=== PATIENT | female | born 1965 | race African-American/Black ===

== ENCOUNTER 2025-04-17 08:18 | Outpatient (AMB) | payer OTHER, SELFPAY ==
--- NOTE | 2025-04-17 08:17 | MHC.PC.OV ---
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 PENDING SALE TO [facility] Medical History (Updated 04/17/25 @ 08:53 by Raysa Betancourt MD) Hx of screening mammography Annual physical exam Normal pelvic exam CKD (chronic kidney disease) stage 3, GFR 30-59 ml/min Surgical History (Updated 04/17/25 @ 08:36 by Raysa Betancourt MD) Hx of colonoscopy Hx of section Family History (Updated 04/17/25 @ 08:23 by Sanjana Vega [facility], [facility]) Father No problems noted. Mother No problems noted. Social History (Updated 04/17/25 @ 08:56 by Raysa Betancourt MD) Household Members Other:: , 5 children (41 -16), works from home preauthorizations Housing: House Patient Tobacco Use Status: Never used Tobacco e-Cigarette/Vaping Use: Never Used service: No Current occupational status: employed Cognitive needs: No Hearing needs: No Vision needs: Yes Questionnaire PHQ-9 Over the last 2 weeks, how often have you been bothered by any of the following problems? 1. Little interest or pleasure in doing things: not at all 2. Feeling down, depressed, or hopeless: not at all 3. Trouble falling or staying asleep, or sleeping too much: not at all 4. Feeling tired or having little energy: not at all 5. Poor appetite or overeating: not at all 6. Feeling bad about yourself - or that you are a failure or have let yourself or your family down: not at all 7. Trouble concentrating on things, such as reading the newspaper or watching television: not at all 8. Moving or speaking so slowly that other people could have noticed. Or the opposite - being so fidgety or restless that you have been moving around a lot more than usual: not at all 9. Thoughts that you would be better off or of hurting yourself in some way: not at all Total score: 0 Depression Screening Interpretation: Negative Depression Screening Done: Yes 48013 - PHQ-9 Billing: Yes Source: Developed by Drs. Stephon Santana, Lynn Mcmanus, Thiago Batista and colleagues, with an educational gaye from [employer]. Thrive Questionnaire Date Thrive assessed: 04/17/25 I am a: Parent/Caregiver What is your living situation today?: I have a steady place to live Within the past 12 months, did the food you bought not last and you didn't have the money to get more?: Never true Within the past 12 months, did you worry whether your food would run out before you got money to buy more?: Never true Do you have trouble paying for medicines?: No Do you have trouble getting transportation to medical appointments?: No Do you have trouble paying your heating and electricity bill?: No Do you have trouble taking care of your child, family member or friend?: No Do you have trouble with day-to-day activities such as bathing, preparing meals, shopping, managing finances, etc.?: No Are you currently unemployed and looking for a job?: Yes Are you interested in more education?: No Please select the resources that you would like help with: None Currently or been in a relationship where the following occur: No concerns reported THRIVE Score: 0 AUDIT C Alcohol Use Questionnaire (AUDIT-C) 1. How often do you have a drink containing alcohol?: Never 3. How often do you have six or more drinks on one occasion?: Never Total Score: 0 YESSICA-7 AMB Questionnaire YESSICA-7 Date YESSICA - 7 assessed: 04/17/25 Feeling nervous, anxious, or on edge: 0 = Not at all Not being able to stop or control worryin = Not at all Worrying too much about different things: 0 = Not at all Trouble relaxin = Not at all Being so restless that it is hard to sit still: 0 = Not at all Becoming easily annoyed or irritable: 0 = Not at all Feeling afraid as if something awful might happen: 0 = Not at all Total YESSICA-7 score (0-4 normal; 5-9 mild; 10-14 moderate; 15-21 severe): 0 Source: Developed by Drs. Stephon Santana, Lynn Mcmanus, Thiago Batista and colleagues, with an educational gaye from [employer]. YESSICA-7 Assessment Billing YESSICA-7 Assessment Tool: YESSICA-7 Assessment 52355 Review of Systems Const All systems reviewed & are unremarkable except as noted in HPI and below Eyes Reports no additional complaints ENT Reports no additional complaints Card Reports no additional complaints Resp Reports no additional complaints GI Reports no additional complaints Reports no additional complaints Musc Reports no additional complaints Physical exam (Primary Care) Vital Signs: Last Vital Signs Temp 98.3 F 04/17/25 08:18 Pulse 81 04/17/25 08:18 Resp 17 04/17/25 08:18 BP 116/80 04/17/25 08:18 Pulse Ox 98 04/17/25 08:18 Oxygen Delivery Method Room Air 04/17/25 08:18 BMI result Body Mass Index 20.6 Tobacco/Smoking Status: Tobacco use Status Tobacco use date assessed 04/17/25 04/17/25 08:24 Patient Tobacco Use Status Never used Tobacco 04/17/25 08:24 e-Cigarette/Vaping Use Never Used 04/17/25 08:24 PHQ-9: PHQ-9 Score PHQ-9: Total score 0 04/17/25 08:24 Depression Screening Interpretation: Negative Thrive Assessment: Date of Thrive Assessment Date Thrive assessed 04/17/25 04/17/25 08:24 Currently or been in a relationship where the following occur: No concerns reported Const General: no acute distress HENMT Head: Yes normal to inspection Ears: hearing grossly normal bilaterally General nose exam: Normal external nose present Face and sinus: Yes normal facial exam Throat: Yes posterior oropharynx normal Eyes General: appearance normal, both eyes and all related structures Neck Neck: Yes no lymphadenopathy and Yes supple Resp Effort & Inspection: normal respiratory effort Auscultation: clear to auscultation bilaterally Cardio Rhythm: regular rhythm Heart sounds: S1 normal heart sound present and S2 normal heart sound present GI Inspection: Yes normal to inspection Palpation (GI): Soft to palpation Percussion: Yes normal to percussion Auscultation: normal bowel sounds Coding Level of Care Code New Pt Prev Care 40-64y(65913) Diagnoses CKD (chronic kidney disease) stage 3, GFR 30-59 ml/min N18.30 Hx of screening mammography Z92.89 Annual physical exam Z00.00 Additional Codes YESSICA-7 Assessment Billing - YESSICA-7 Assessment Tool: YESSICA-7 Assessment 92573 ([id number]) PHQ-9 - 24038 - PHQ-9 Billing: Yes ([id number]) Assessment & Plan Assessment & Plan (1) CKD (chronic kidney disease) stage 3, GFR 30-59 ml/min: Comment: 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 She will have a fasting blood work today. Patient will provide a copy of her colonoscopy from [facility] Orders: Orders Comprehensive [place]. Panel Fast Today E55.9 - Vitamin D deficiency, unspecified, N18.30 - Chronic kidney disease, stage 3 unspecified, Z00.00 - Encounter for general adult medical examination without abnormal findings TSH reflex Free T4 Today E55.9 - Vitamin D deficiency, unspecified, N18.30 - Chronic kidney disease, stage 3 unspecified, Z00.00 - Encounter for general adult medical examination without abnormal findings Vitamin D 25-OH Total Today E55.9 - Vitamin D deficiency, unspecified, N18.30 - Chronic kidney disease, stage 3 unspecified, Z00.00 - Encounter for general adult medical examination without abnormal findings UA w Microscopic Today E55.9 - Vitamin D deficiency, unspecified, N18.30 - Chronic kidney disease, stage 3 unspecified, Z00.00 - Encounter for general adult medical examination without abnormal findings Complete Blood Count Auto Diff Today E55.9 - Vitamin D deficiency, unspecified, N18.30 - Chronic kidney disease, stage 3 unspecified, Z00.00 - Encounter for general adult medical examination without abnormal findings Lipid Panel Today E55.9 - Vitamin D deficiency, unspecified, N18.30 - Chronic kidney disease, stage 3 unspecified, Z00.00 - Encounter for general adult medical examination without abnormal findings
[2025-04-17 08:18] VITALS: BP 116/80; PULSE 81; RESP 17; TEMP 36.8; O2SAT 98; BMI 20.6
--- OUTSIDE RECORDS SUMMARY | 2025-04-17 08:36 | XMS_ITS | Encounter Summary ---
Author Organization [facility], Address [address] [place] [address] Phone Care Team Providers Care Electronics Assembler Name Role Phone Reuben Hwang MD Primary Care Provider [phone] Encounter Details Date Type Department Care Team (Late Contact Info) Description 01/20/2023 Documentation Only [facility] [address] [place] [address] Mt Segura DO [address] [place] [address] Social History Tobacco Use Types Packs/Day Years Used Date Smoking Tobacco: Never Smokeless Tobacco: Never Alcohol Use Standard Drinks/Week Comments Not Currently 0 (1 standard drink = 0.6 oz pur e alcohol) Comments Unknown Sex and Gender Information Value Date Recorded Sex Assigned at Not on file Legal Sex Female 11:59 AM EST Gender Identity Not on file Sexual Orientation Not on file documented as of this encounter Plan of Treatment Upcoming Encounters Date Type Department Care Team (Late Contact Info) Description 05/31/2025 4:30 PM EST Office Visit [facility] [address] [place] [address] Mt Segura DO [address] [place] [address] documented as of this encounter Visit Diagnoses Not on filedocumented in this encounter Care Teams Electronics Assembler Relationship Specialty Start Date End Date Reuben Hwang MD [address] [place] [address] PCP - General Internal Medicine 08/02/19 documented as of this encounter
--- OUTSIDE RECORDS SUMMARY | 2025-04-17 08:37 | XMS_ITS | Clinical Summary ---
Author Organization [facility], Address [address] [place] [address] [place] [address] Phone Care Team Providers Care Trial Court Justice Name Role Phone Reuben Hwang MD Primary Care Provider Allergies No known active allergies Medications Dapagliflozin Propanediol (Farxiga) 10 MG tabletIndication s:Chronic kidney disease, stage 4 (severe) (HCC),Persistent proteinuria,Elev ated blood pressure reading with no diagnosis of hypertension,Hyp ophosphatemia Take 10 mg by mouth 1 (one) time each day in the morning 90 tablet 3 5 04/04/20 26 Active Farxiga 10 MG tabletIndication s:Chronic kidney disease, stage 4 (severe) (HCC),Persistent proteinuria,Elev ated blood pressure reading with no diagnosis of hypertension,Hyp ophosphatemia TAKE 1 TABLET BY MOUTH EVERY MORNING 90 tablet 3 4 04/04/20 25 Discontinu ed(Reorder (does not appear on AVS)) Active Problems Problem Noted Date Diagnosed Date Chronic kidney disease, stage 4 (severe) 022 Stage 3b chronic kidney disease 12/14/2019 Overview (07/02/2020): Update for Diagnosis Load 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/03/2019 Serum creatinine above reference range Proteinuria Overview (12/14/2019): sub-nephrotic range Elevated blood pressure read ing with no diagnosis of hypertension Cyst of kidney Overview (12/14/2019): benign Encounters Date Type Department Care Team Description 04/04/2025 Refill [facility], [address] [place] [address] Danny Felder [place] Chronic kidney disease, stage 4 (severe) (HCC); Persistent proteinuria; Elevated blood pressure reading with no diagnosis of hypertension; Hypophosphatemia from Last 3 Months Immunizations Immunization Administration Dates Next Due Influenza, MDCK, PF, Quadrivalent 04/12/2020 Influenza, Quadrivalent, Preservative Free 07/11 Influenza, Unspecified 04/12/2020,07/11/2019 Tdap 01/03/2021 Family History Medical History Relation Comments Other Mother was on dialysis Relation Status Comments Mother Social History Tobacco Use Types Packs/Day Years Used Date Smoking Tobacco: Never Smokeless Tobacco: Never Alcohol Use Standard Drinks/Week Comments Not Currently 0 (1 standard drink = 0.6 oz pur e alcohol) Comments Unknown Sex and Gender Information Value Date Recorded Sex Assigned at Not on file Legal Sex Female 11:59 AM EST Gender Identity Not on file Sexual Orientation Not on file Last Filed Vital Signs Vital Sign Reading Time Taken Comments Blood Pressure 128/72 10/26/2024 5:28 PM EDT Pulse 70 10/26/2024 5:28 PM EDT Temperature - - Respiratory Rate - - Oxygen Saturation - - Inhaled Oxygen Concentration - - Weight - - Height - - Body Mass Index - - Plan of Treatment Upcoming Encounters Date Type Department Care Team (Late st Contact Info) Description 05/31/2025 4:30 PM EST Office Visit [facility], [address] [place] [address] Mt Segura DO [address] [place] [address] [place] [id number] Health Maintenance Due Date Last Done Comments Breast Cancer Screening 1967 Hepatitis B Vaccine (1 of 3 - 19+ 3-dose series) 1986 Pneumococcal Vaccine: 50+ Ye ars (1 of 2 - PCV) 1986 Colorectal Cancer Screening: Annual FOBT 2016 Colorectal Cancer Screening: Colonoscopy 2016 Colorectal Cancer Screening: Sigmoidoscopy 2016 Influenza Vaccine (#1) 2025 0, 04/12/2020, 07/11/2019, Additional history exists Insurance [facility] Care Teams Trial Court Justice Relationship Specialty Start Date End Date Reuben Hwang MD [address] [place] [address] PCP - General Internal Medicine 08/02/19
--- OUTSIDE RECORDS SUMMARY | 2025-04-17 08:37 | XMS_ITS | Encounter Summary ---
Author Organization [facility], Address [address] [place] [address] Phone Care Team Providers Care Cushion Stuffer Name Role Phone Reuben Hwang MD Primary Care Provider [phone] Encounter Details Date Type Department Care Team (Late Contact Info) Description 01/20/2023 Documentation Only [facility] [address] [address] Mt Segura DO [address] [place] [address] Social History Tobacco Use Types [...] Visit [facility] [address] [place] [address] Mt Segura DO [address] [place] [address] documented as of this encounter Visit Diagnoses Not on filedocumented in this encounter Care Teams Cushion Stuffer Relationship Specialty Start Date End Date Reuben Hwang MD [address] [place] [address] PCP - General Internal Medicine 08/02/19 documented as of this encounter
--- OUTSIDE RECORDS SUMMARY | 2025-04-17 08:37 | XMS_ITS | Clinical Summary ---
Author Organization [facility] Address [address] [place] [address] Care Team Providers Care Medical Imaging Technician Name Role Phone Unavailable Primary Care Provider Unavailabl e Source Comments PLEASE NOTE, if this patient is a minor, it may be UNLAWFUL to discuss sensitive information that is contained in these records (such as FAMILY PLANNING, MENTAL HEALTH or SUBSTANCE ABUSE) with the minor patient's parent or other person without the patient's specific authorization.[facility] Allergies No known active allergies Medications No known medications Active Problems Problem Noted Date Diagnosed Date H/O mammogram 03/12/2021 Overview (04/22/2021): 03/07/21 Mammo BIRADS 0 03/18/21 L Breast u/s BIRADS 2 Proteinuria 01/03/2021 Overview (01/03/2021): sub-nephrotic range Renal cyst 01/03/2021 Overview (01/03/2021): benign Close exposure to COVID-19 virus 09/27/2020 Chronic kidney disease, stage 3b 12/14/2019 Overview (01/03/2021): Update for Diagnosis Load Vaccine refused by patient 08/09/2019 CKD (chronic kidney disease) stage 4, GFR 15-29 ml/min 07/16/2019 Elevated blood-pressure read ing, without diagnosis of hypertension 07/16/2019 Immunizations Immunization Administration Dates Next Due Flu, Cell Culture based, Pre servative Free, 6m+, Flucelvax 04/12/2020 Flu, Preservative Free 07/11/2019 Moderna COVID-19 Vaccine, re d cap blue label, 12+ Primary Series 06/06/2021,11/14/2020,10/18/2020 TDAP 01/03/2021 Family History Medical History Relation Name Comments Other (See Comments) Brother 1 shot an d killed. No Known Problems Daughter 1 No Known Problems Daughter 2 No Known Problems Daughter 3 Kidney disease Mother was on dialys is No Known Problems Sister No Known Problems Son 1 No Known Problems Son 2 Cancer Neg Relation Name Status Comments Brother 1 Brother 2 Brother 3 Daughter 1 Alive Daughter 2 Alive Daughter 3 Alive Father Mother Sister Alive Son 1 Alive Son 2 Alive Social History Tobacco Use Types Packs/Day Years Used Date Smoking Tobacco: Never Smokeless Tobacco: Never Alcohol Use Standard Drinks/Week Comments Not Currently 0 (1 standard drink = 0.6 oz pur e alcohol) Social Connections Answer Date Recorded Connectedness 0 10/05/2020 Financial Resource Strain Answer Date R ecorded Financial Resource Strain 0 2020 Stress Answer Date Recorded Stress 0 10/05/2020 Physical Activity Answer Date Recorded Physical Activity 0 07/11/2019 Food Insecurity Answer Date Recorded Food 0 10/05/2020 Transportation Needs Answer Date Record ed Transportation 0 10/05/2020 Housing Stability Answer Date Recorded Housing 0 10/05/2020 Safety and Environment Answer Date Maurice rded Safety 0 10/05/2020 Utilities Answer Date Recorded Utilities 0 10/05/2020 Employment Answer Date Recorded Stress 0 10/05/2020 Comments No Sex and Gender Information Value Date Recorded Sex Assigned at Female 07/16/2019 6:58 PM PST Legal Sex Female 10:33 AM PDT Gender Identity Female 07/16/2019 6:58 PM PST Sexual Orientation Straight 07/16/2019 6: 58 PM PST Last Filed Vital Signs Vital Sign Reading Time Taken Comments Blood Pressure 122/78 01/03/2021 10:45 AM EDT Pulse 64 01/03/2021 10:45 AM EDT Temperature 36.9 C (98.4 F) 01/03/2021 10:45 AM EDT Respiratory Rate 15 01/03/2021 10:45 AM EDT Oxygen Saturation 98% 02/28/2020 1:15 PM EDT Inhaled Oxygen Concentration - - Weight 57.6 kg (127 lb) 01/03/2021 10:45 AM EDT Height 165.1 cm (5' 5 ) 01/03/2021 10:45 AM EDT Body Mass Index 21.13 01/03/2021 10:45 AM EDT Plan of Treatment Health Maintenance Due Date Last Done Comments Anxiety Screening 1967 Tobacco Screening 1967 Imm-Hepatitis B (1 of 3 - 19 + 3-dose series) 1986 CT Colonography 2012 Colonoscopy 2012 Fecal DNA 2012 Flexible Sigmoidoscopy 2012 Imm-Pneumococcal 50+ (1 of 1 - PCV) 2017 Imm-Zoster, Recombinant (1 of 2) 2017 Colorectal Cancer Screening 08/18/2020 FIT/gFOBT 08/18/2020 08/18/2019 Annual Wellness (Adult): Ind icated (All Coverage) 01/03/2022 01/03/2021, 08/08/2019 Hypertension Screening (#1) 01/03/2022 Breast Cancer Screening (Mammogram) 03/07/202203/07 Pap Smear 02/27/2023 02/28/2020 Diabetes Screening 01/04/2024 01/03/2021, 0 07/11/2019, 07/11/2019 Alcohol and Drug Screen 06/29/2024 01/03/2021, 07/11 Depression Annual Screen 06/29/2024 Cervical Cancer Screening 02/27/2025 HPV Screening 02/27/2025 02/28/2020 [id number] ( season) 2025 06/06/2021, 11/14/2020, 10/18/2020 Imm-Influenza (#1) 2025 04/12/2020, 07/11/2019 Pap + HPV 02/27/2025 02/28/2020 Lipid Screening 01/03/2026 01/03/2021, 07/11/2019 Imm-DTaP/Tdap/Td (2 - Td or Tdap) 01/03/2031 021 HIV Screening Completed 07/11/2019 Hepatitis C Screening Completed 01/03/2021 Cervical Ablation/Cold-Knife Conization Discontinued Cervical Cryotherapy Discontinued Colposcopy Discontinued Endometrial Biopsy Discontinued Excision/Leep Discontinued HPV Genotyping Discontinued Vaginal Pap Discontinued Vulvoscopy Discontinued Procedures Procedure Name Priority Date/Time Associated Diagnosis Comments REFERRAL FOR MAMMOGRAM Routine 12:00 AM EDT Encounter for screening mammogram for malignant neoplasm of breast HEPATITIS C AB W/RFLX HCV RNA, QT, RT PCR Routine 01/03/2021 11:34 AM EDT Encounter for hepatitis C screening test for low risk patient COMPREHENSIVE METABOLIC PANEL Routine 01/03/2021 11:34 AM EDT Routine general medical examination at a health care facility LIPID PANEL Routine 01/03/2021 11:34 AM EDT Routine general medical examination at a [facility] care facility PAP SMEAR W/HPV, ABSTRACTED Routine 02/28/2020 FECAL OCCULT BLOOD HEMOCCULT X3, SHAWN HERMILA (POCT) Routine 08/18/2019 4:01 PM EST Screening for colorectal cancer ANTIBODY HIV-1&HIV-2 SINGLE RESULT Routine 07/11/2019 10:59 AM EST CKD (chronic kidney disease) stage 4, GFR 15-29 ml/min ([facility]) from Last 3 Months or Most Recently Relevant to Health Maintenance Results * REFERRAL FOR MAMMOGRAM SCREENING (03/07/2021 12:00 AM EDT) 03/07/2021 Christin Perry 7TH GRADE SOCIAL STUDIES TEACHER IMG RFL MAMMO Edited Re sult - Final * HEPATITIS C AB W/RFLX HCV RNA, QT, RT PCR (01/03/2021 11:34 AM EDT) HEPATITIS C ANTIBODY NON-REACT MARSHALL NON-REACT MARSHALL [employer] [facility] SIGNAL TO CUT-OFF 0.05 <1.00 [employer] [facility] Comment: HCV antibody was non-reactive. There is no laboratory evidence of HCV infection. In most cases, no further action is required. However, if recent HCV exposure is suspected, a test for HCV RNA (test code 35655) is suggested. For additional information please refer to http://PBworks.Webstep/faq/IMP41m7 (This link is being provided for informational/ educational purposes only.) Blood Blood / Unknown 01/03/2021 1 1:34 AM EDT 01/03/2021 11:34 AM EDT Narrative [facility] [employer] [facility] - 01/04/2021 3:34 PM EDT FASTING:YES Christin [facility] - BLOOD DRAW Final Re sult [employer] [address] [address], [employer] [address] [address] * (ABNORMAL) LIPID PANEL (01/03/2021 11:34 AM EDT) CHOLESTEROL, TOTAL 185 <200 mg/dL [employer] [facility] HDL CHOLESTEROL 60 > OR = 50 mg/dL [employer] [facility] TRIGLYCERIDES 49 <150 mg/dL [employer] [facility] LDL-CHOLESTEROL 111(H) 99 mg/dL (calc) [employer] [facility] Comment: Reference range: <100 Desirable range <100 mg/dL for primary prevention; <70 mg/dL for patients with CHD or diabetic patients with > or = 2 CHD risk factors. LDL-C is now calculated using the Raúl-Edgar calculation, which is a validated novel method providing better accuracy than the Friedewald equation in the estimation of LDL-C. Raúl ROBLES et al. ANTHONY. 2013;310(19): 7227-2474 (http://education.CellEra/faq/OHL915) CHOL/HDLC RATIO 3.1 <5.0 (calc) [employer] [facility] NON-HDL CHOLESTEROL 125 <130 mg/dL (calc) [facility] Comment: For patients with diabetes plus 1 major ASCVD risk factor, treating to a non-HDL-C goal of <100 mg/dL (LDL-C of <70 mg/dL) is considered a therapeutic option. Blood Blood / Unknown 01/03/2021 1 1:34 AM EDT 01/03/2021 11:34 AM EDT Narrative [employer] [facility] - 01/04/2021 12:18 PM EDT FASTING:YES Christin Perry 7TH GRADE SOCIAL STUDIES TEACHER LAB - BLOOD DRAW Final Re sult [employer] [facility] [address] [address], [employer] [facility] [address] [address] * (ABNORMAL) COMPRE METAB PANEL (CMP) (01/03/2021 11:34 AM EDT) GLUCOSE 85 65 - 99 mg/dL [employer] [facility] Comment: Fasting reference interval UREA NITROGEN (BUN) 22 7 - 25 mg/dL [employer] [facility] CREATININE (blood) 2.02(H) 0.50 - 1.05 mg/dL [employer] [facility] Comment: For patients >49 years of age, the reference limit for Creatinine is approximately 13% higher for people identified as -Salvadorean. GFR ESTIMATED 27(L) > OR = 60 mL/min/1. 73m2 [employer] [facility] EGFR 32(L) > OR = 60 mL/min/1. 73m2 [employer] [facility] BUN/CREATININE RATIO 11 6 - 22 (calc) [employer] [facility] SODIUM 138 135 - 146 mmol/L [employer] [facility] POTASSIUM 3.9 3.5 - 5.3 mmol/L [employer] [facility] CHLORIDE 107 98 - 110 mmol/L [employer] [facility] CARBON DIOXIDE 26 20 - 32 mmol/L [employer] [facility] CALCIUM 9.0 8.6 - 10.4 mg/dL [employer] [facility] PROTEIN, TOTAL 7.2 6.1 - 8.1 g/dL [employer] [facility] ALBUMIN 4.1 3.6 - 5.1 g/dL [employer] [facility] GLOBULIN 3.1 1.9 - 3.7 g/dL (calc) [employer] [facility] ALBUMIN/GLOBULIN RATIO 1.3 1.0 - 2.5 (calc) [employer] [facility] BILIRUBIN, TOTAL 0.5 0.2 - 1.2 mg/dL [facility] ALKALINE PHOSPHATASE 33(L) 37 - 153 U/L [facility] AST 12 10 - 35 U/L [facility] ALT 7 6 - 29 U/L [facility] Blood Blood / Unknown 01/03/2021 1 1:34 AM EDT 01/03/2021 11:34 AM EDT Narrative [facility] - 01/04/2021 12:18 PM EDT FASTING:YES Christin Perry 7TH GRADE SOCIAL STUDIES TEACHER LAB - BLOOD DRAW Edited R esult - Final [employer] [facility] [address] [address], [employer] [facility] [address] [address] * PAP SMEAR W/HPV (02/28/2020) PAP SMEAR INTERPRETATION NORMAL NORMAL [facility] HPV (HUMAN PAPILLOMA) NEGATIVE NEGATIVE [facility] HPV TYPE 16 NEGATIVE NEGATIVE [facility] HPV TYPE 18 NEGATIVE NEGATIVE [facility] Cervix 02/28/2020 Impressions [facility] - 09/05/2020 1:34 PM EST ThinPrep Pap, Imaged: Negative for Squamous Intraepithelial Lesion and Malignancy Trichomonas is Present. HPV Negative Provider [facility] - PATHOLOGY AND CYTOLOGY AMB ULATORY Final Result [facility] [address] [place] [address], * (ABNORMAL) FOBT/FIT (Stool Occult Blood Test) (POCT) (08/18/2019 4:01 PM EST) FECAL OCCULT BLOOD NEGATIVE NEGATIVE [facility] POCT FECAL OCCULT BLOOD #2 POSITIVE(A) NEGATIVE [facility] POCT FECAL OCCULT BLOOD #3 NEGATIVE NEGATIVE [facility] POCT Stool specimen (specimen) Stool specimen / Unknown 08/18/2019 4:01 PM EST Vivian Michaeldonnelljacquelin 7TH GRADE SOCIAL STUDIES TEACHER LAB BODY FLUIDS AND STOOLS AMB ULATORY Final Result [facility] POCT * HIV-1 & HIV-2 ANTIBODIES (07/11/2019 10:59 AM EST) HIV 1 AND 2 ANTIBODY SCREEN NONREACTIVE NONREACTIVE [facility] Comment: HIV testing performed at reference lab due to reagent backorder. Test performed at: [facility] [address] [place] [address] Freedom Doshi MD- Campground Attendant Blood specimen (specimen) Blood / Unknown 07/11/2019 10:59 AM EST 07/11/2019 12:33 PM EST Narrative [facility] - 07/13/2019 2:42 PM EST [employer], [place] [address] Campground Attendant - Dominique Shetty MD PT ID [id number] ORD# [id number] Vivian Michaelwhitney [facility] - BLOOD DRAW Final Result Performing Organization Address City/[facility]/ZIP Co de Phone Number [address] [address], from Last 3 Months or Most Recently Relevant to Health Maintenance Insurance [employer] [place] DENT[place] FORMERLY [facility] [place] [address]
--- OUTSIDE RECORDS SUMMARY | 2025-04-17 08:37 | XMS_ITS | Encounter Summary ---
Author Organization [facility], Address [address] [place] [address] Phone Care Team Providers Care Hand Cloth Folder Name Role Phone Reuben Hwang MD Primary Care Provider [phone] Encounter Details Date Type Department Care Team (Late Contact Info) Description 03/11/2024 Documentation Only [facility] [address] [place] [address] Danny Felder [place] [address] [place] [phone] Social History Tobacco Use Types Packs/Day Years [...] Visit [facility] [address] [place] [address] [place] [facility] DO [address] [place] [address] [place] [phone] documented as of this encounter Visit Diagnoses Not on filedocumented in this encounter Care Teams Hand Cloth Folder Relationship Specialty Start Date End Date Reuben Hwang MD [address] [place] [address] PCP - General Internal Medicine 08/02/19 documented as of this encounter
--- OUTSIDE RECORDS SUMMARY | 2025-04-17 08:37 | XMS_ITS | Encounter Summary ---
Author Organization [facility] Address [address] [place] [address] Phone Care Team Providers Care Food Safety Specialist Name Role Phone Reuben Hwang MD Primary Care Provider [phone] Reason for Visit * Reason Comments Med Change Request Encounter Details Date Type Department Care Team (Late Contact Info) Description 03/06/2023 Refill [facility] [address] [facility] [address] Mt Segura DO [address] [facility] [place] [address] Chronic kidney disease, stage 4 (severe) (HCC); Persistent proteinuria; Elevated blood pressure reading with no diagnosis of hypertension; Hypophosphatemia Social History Tobacco Use Types Packs/Day Years [...] Visit [facility] [address] [facility] [address] Mt Segura DO [address] [facility] [place] [address] documented as of this encounter Visit Diagnoses Diagnosis Chronic kidney disease, stage 4 (severe) (HCC) Persistent proteinuria Elevated blood pressure reading with no diagnosis of hypertension Hypophosphatemia documented in this encounter Care Teams Food Safety Specialist Relationship Specialty Start Date End Date Reuben Hwang MD [address] [place] [address] PCP - General Internal Medicine 08/02/19 documented as of this encounter
--- OUTSIDE RECORDS SUMMARY | 2025-04-17 08:37 | XMS_ITS | Encounter Summary ---
Author Organization [facility], Address [address] [place] [address] Phone Care Team Providers Care Boiler Maker Name Role Phone Reuben Hwang MD Primary Care Provider [phone] Encounter Details Date Type Department Care Team (Late Contact Info) Description 03/09/2024 Documentation Only [facility] [address] [place] [address] Mt Segura DO [address] [address] [place] [address] Social History Tobacco Use Types [...] Visit [facility] [address] [place] [address] Mt Segura DO [address] [facility] [address] [place] [address] documented as of this encounter Visit Diagnoses Not on filedocumented in this encounter Care Teams Boiler Maker Relationship Specialty Start Date End Date Reuben Hwang MD [address] [place] [address] PCP - General Internal Medicine 08/02/19 documented as of this encounter
--- OUTSIDE RECORDS SUMMARY | 2025-04-17 08:37 | XMS_ITS | Encounter Summary ---
Author Organization [facility] [place], Address [address] [place] [address] Phone Care Team Providers Care Bulb Farmworker Name Role Phone Reuben Hwang MD Primary Care Provider [phone] Encounter Details Date Type Department Care Team (Late Contact Info) Description 03/26/2023 Documentation Only [facility] [place], [address] [place] [address] Connie Waller [address] [place] [address] Social History Tobacco Use Types Packs/Day Years [...] Visit [facility] [address] [place] [address] Mt Segura DO [address] [facility] [place] [address] documented as of this encounter Visit Diagnoses Not on filedocumented in this encounter Care Teams Bulb Farmworker Relationship Specialty Start Date End Date Reuben Hwang MD [address] [place] [address] PCP - General Internal Medicine 08/02/19 documented as of this encounter
--- OUTSIDE RECORDS SUMMARY | 2025-04-17 08:37 | XMS_ITS | Encounter Summary ---
Author Organization [facility] [place], Address [address] [place] [address] Phone Care Team Providers Care Advanced Manager Name Role Phone Reuben Hwang MD Primary Care Provider [phone] Encounter Details Date Type Department Care Team (Late Contact Info) Description 03/14/2024 Documentation Only [facility] [address] [place] [address] Danny Felder [place] [address] [place] [phone] Social History Tobacco Use Types Packs/Day Years [...] Visit [facility] [address] [facility] [address] [facility] [address] [place] [address] Mt Segura DO [address] [place] [address] [place] [phone] documented as of this encounter Visit Diagnoses Not on filedocumented in this encounter Care Teams Advanced Manager Relationship Specialty Start Date End Date Reuben Hwang MD [address] [place] [address] PCP - General Internal Medicine 08/02/19 documented as of this encounter
--- OUTSIDE RECORDS SUMMARY | 2025-04-17 08:37 | XMS_ITS | Encounter Summary ---
Author Organization [facility] [place], Address [address] [place] [address] Phone Care Team Providers Care Roofing Sales Representative Name Role Phone Reuben Hwang MD Primary Care Provider Encounter Details Date Type Department Care Team (Late Contact Info) Description 03/14/2024 Documentation Only [facility] [address] [place] [address] Danny Felder [place] [address] [place] [phone] Social History Tobacco Use Types Packs/Day Years [...] Visit [facility] [address] [place] [address] Mt Segura DO [address] [place] [address] [place] [phone] documented as of this encounter Visit Diagnoses Not on filedocumented in this encounter Care Teams Roofing Sales Representative Relationship Specialty Start Date End Date Reuben Hwang MD [address] [place] [address] PCP - General Internal Medicine 08/02/19 documented as of this encounter
--- OUTSIDE RECORDS SUMMARY | 2025-04-17 08:37 | XMS_ITS | Encounter Summary ---
Author Organization [facility] [place], Address [address] [place] [address] Phone Care Team Providers Care Commercial Internship Name Role Phone Reuben Hwang MD Primary Care Provider [phone] Encounter Details Date Type Department Care Team (Late Contact Info) Description 03/30/2024 Documentation Only [facility] [address] [place] [address] Mt Segura DO [address] [facility] [place] [address] Social History Tobacco Use Types [...] Visit [facility] [address] [place] [address] Mt Segura DO [address] [place] [address] documented as of this encounter Visit Diagnoses Not on filedocumented in this encounter Care Teams Commercial Internship Relationship Specialty Start Date End Date Reuben Hwang MD [address] [place] [address] PCP - General Internal Medicine 08/02/19 documented as of this encounter
--- OUTSIDE RECORDS SUMMARY | 2025-04-17 08:37 | XMS_ITS | Encounter Summary ---
Author Organization [facility] Address [address] [place] [address] Phone Care Team Providers Care Machine Clothing Replacer Name Role Phone Reuben Hwang MD Primary Care Provider [phone] Reason for Visit * Reason Comments Med Change Request Encounter Details Date Type Department Care Team (Late Contact Info) Description 03/09/2023 Refill [facility] [address] [place] [address] Mt Segura DO [address] [facility] [place] [address] Chronic kidney disease, stage 4 [...] Visit [facility] [address] [place] [address] Mt Segura DO [address] [facility] [place] [address] documented as of this encounter Visit Diagnoses Diagnosis Chronic kidney disease, stage 4 (severe) (HCC) Persistent proteinuria Elevated blood pressure reading with no diagnosis of hypertension Hypophosphatemia documented in this encounter Care Teams Machine Clothing Replacer Relationship Specialty Start Date End Date Reuben Hwang MD [address] [place] [address] PCP - General Internal Medicine 08/02/19 documented as of this encounter
--- OUTSIDE RECORDS SUMMARY | 2025-04-17 08:38 | XMS_ITS | Clinical Summary ---
Author Organization [facility] [place] [address] Care Team Providers Care Manager Commercial Name Role Phone None Primary Care Provider Unavailabl e Social History Tobacco Use Types Packs/Day Years Used Date Smoking Tobacco: Never Assessed Comments Unknown Sex and Gender Information Value Date Recorded Sex Assigned at Not on file Legal Sex Female 9:57 AM EDT Gender Identity Not on file Sexual Orientation Not on file Plan of Treatment Health Maintenance Due Date Last Done Comments CT Colonography 1967 Colonoscopy 1967 Colorectal Cancer Screening 1967 FIT DNA 1967 FIT 1967 Sigmoidoscopy (10 year) with FIT yearly 1967 Sigmoidoscopy 1967 HIV screen 1985 Hepatitis C Screening 1985 Hepatitis B vaccine (0-59 yrs) and Risk (1) 1986 Tetanus/Diphtheria/Pertussis Vaccines (1 - Tdap) 03/05 HPV test 1997 PAP Smear 1997 Breast Cancer Share Decision Needed 2007 Breast Cancer screening 2007 Pneumoccocal Vaccine: 50+ (1 of 1 - PCV) 2017 Zoster vaccine (1 of 2) 2017 Advance Directive 2022 Covid-19 Vaccine (1 - season) 2025 Influenza (Flu) vaccine (1 o f 1 - Influenza standard series) 02/27/2025 Care Teams Manager Commercial Relationship Specialty Start Date End Date None None PCP - General 10/08/17
== END 2025-04-17 08:59 | disposition home or self-care (01) ==
LOC: HO.HMCC 08:19
PROVIDERS: Visit Provider Internal Medicine
DX: Z00.00 Encounter for general adult medical examination without abnormal findings (principal); N18.30 Chronic kidney disease, stage 3 unspecified; Z92.89 Personal history of other medical treatment

== ENCOUNTER 2025-04-17 08:18 | Outpatient (REF) | payer OTHER, SELFPAY ==
[2025-04-17 10:10] LABS: Appearance Urine Clear; Glucose Urine UA 500 mg/dL (Negative); PH 5.5 (5.0-9.0); Specific Gravity - Urine 1.015 (1.005-1.025); UMIC TRIGGER UA YES
[2025-04-17 10:25] LABS: MANUAL DIFF FLAG NO
[2025-04-17 10:43] LABS: Hematocrit 30.7 % (37.0-47.0); Hemoglobin 9.6 g/dl (12.0-16.0); Imm Gran Abs Auto 0.03 X10*3/uL (0.00-0.03); Imm Gran Pct Auto 0.5 % (0.0-0.4); Lymphocytes Absolute Auto 2.0 X10*3/uL (1.2-4.9); Mean Corpuscular HGB Conc 31.3 g/dl (31.0-35.0); Mean Corpuscular Hemoglobin 28.0 pg (27.0-33.0); Mean Corpuscular Volume 89.5 fL (80.0-98.0); NRBC Abs Auto 0.000 X10*3/uL (0.0-0.012); NRBC Pct Auto 0.0 /100WBC (0.0-0.2); Platelet Count 237 X10*3/uL (160-400); Red Blood Count 3.43 X10*6/uL (4.20-5.50); White Blood Count 6.4 X10*3/uL (4.8-10.8)
[2025-04-17 11:03] LABS: Alanine Aminotransferase 9 U/L (0-31); Albumin Level 4.3 g/dL (3.5-5.0); Alkaline Phosphatase 44 U/L (39-117); Anion Gap 11 (12-20); Aspartate Amino Transferase 17 U/L (5-31); Blood Urea Nitrogen 25 mg/dL (9-16); Calcium 8.6 mg/dL (8.4-10.2); Carbon Dioxide 22 mmol/L (22-29); Chloride 111 mmol/L (96-108); Cholesterol 175 mg/dL (<200); Estimated Glomerular Filt Rate 18; HDL Cholesterol 55 mg/dL (>40); Potassium 3.1 mmol/L (3.3-5.1); Sodium 141 mmol/L (135-145); Total Protein 7.4 g/dL (6.5-8.0); Triglycerides 62 mg/dL (<150)
== END 2025-04-17 08:19 | disposition home or self-care (01) ==
LOC: HO.HMGCLDS 08:18
PROVIDERS: PCP Internal Medicine; Visit Provider Internal Medicine
DX: Z00.00 Encounter for general adult medical examination without abnormal findings (principal); N18.30 Chronic kidney disease, stage 3 unspecified; E55.9 Vitamin D deficiency, unspecified; Z79.84 Long term (current) use of oral hypoglycemic drugs
CPT/HCPCS: 36415; 80053; 80061; 81001; 82306; 84443; 85025; 96127